=== PATIENT | female | born 1950 | race Caucasian/White ===

== ENCOUNTER 2016-07-05 14:06 | Inpatient (IN) | payer MEDICARE ==
[~2016-07-05] VITALS: Ht 160 cm; Wt 84.0 kg
[2016-07-05 17:14] LABS: ALBUMIN 4.3 g/dL (3.4-4.8); BASOPHIL 0.3 % (0-2); BILIRUBIN - TOTAL 0.4 mg/dL (0.1-1.0); CREATININE 1.3 mg/dL (0.5-1.0); EOSINOPHIL 3.3 % (0-7); HCT 42.9 % (37.0-47.0); HGB 14.7 g/dl (12.5-16.0); LYMPHOCYTE 28.8 % (15-48); MCH 28.8 pg (25.0-31.0); MCHC 34.3 g/dL (32.0-36.0); MCV 84.1 fL (78.0-100.0); MONOCYTE 6.8 % (0-12); MPV 9.3 fL (6.0-9.5); NEUTROPHIL 60.8 % (41-80); PLT 176 K/uL (150-400); RDW 14.2 % (11.5-14.0); TOTAL PROTEIN 8.3 g/dL (6.4-8.3); WBC 11.1 K/uL (4.0-10.5)
[2016-07-05 17:31] LABS: BILIRUBIN NEGATIVE (NEGATIVE); BLOOD NEGATIVE Ery/uL (NEGATIVE); CLARITY HAZY (CLEAR); COLOR YELLOW (YELLOW); GLUCOSE (U) 1+ mg/dL (NORMAL); KETONE (U) TRACE mg/dL (NEGATIVE); LEUKOCYTES NEGATIVE Leu/uL (NEGATIVE); NITRITE NEGATIVE (NEGATIVE); PROTEIN 1+ mg/dL (NEGATIVE); SPECIFIC GRAVITY >=1.030 (1.001-1.030)
[2016-07-05 17:32] LABS: BACTERIA 1+; MUCOUS TRACE
[2016-07-05 17:46] LABS: INR 1.04 (0.9-1.2); PROTHROMBIN TIME 13.2 SECONDS (11.7-14.0); PTT 27.7 SECONDS (23.2-31.4)
[2016-07-07 05:20] LABS: HCT 35.5 % (37.0-47.0); HGB 12.3 g/dl (12.5-16.0); MCH 29.5 pg (25.0-31.0); MCHC 34.6 g/dL (32.0-36.0); MCV 85.1 fL (78.0-100.0); MPV 8.7 fL (6.0-9.5); RBC 4.17 M/uL (4.20-5.40); RDW 13.7 % (11.5-14.0); WBC 9.5 K/uL (4.0-10.5)
[2016-07-07 05:43] LABS: CREATININE 1.3 mg/dL (0.5-1.0); POTASSIUM 4.5 mmol/L (3.5-5.1)
[2016-07-08 05:55] LABS: HCT 34.8 % (37.0-47.0); HGB 11.4 g/dl (12.5-16.0); MCH 28.7 pg (25.0-31.0); MCHC 32.8 g/dL (32.0-36.0); MCV 87.7 fL (78.0-100.0); MPV 9.2 fL (6.0-9.5); RBC 3.97 M/uL (4.20-5.40); WBC 9.4 K/uL (4.0-10.5)
== END 2016-07-08 14:56 | DRG 493 ==
LOC: FER 14:06 → FMS 15:54
PROVIDERS: Emergency Medicine; Legal Medicine; ADMIT Internal Medicine
PROC: 0MS Bursae and Ligaments, Reposition (ICD-10-PCS; 2016-07-06)
PROC: 0QSK04Z Reposition Left Fibula with Internal Fixation Device, Open Approach (ICD-10-PCS; principal; 2016-07-06 10:00)
DX: S82.392A Other fracture of lower end of left tibia, initial encounter for closed fracture (principal); D62 Acute posthemorrhagic anemia; E11.22 Type 2 diabetes mellitus with diabetic chronic kidney disease; S93.422A Sprain of deltoid ligament of left ankle, initial encounter; S82.832A Other fracture of upper and lower end of left fibula, initial encounter for closed fracture; W01.0XXA Fall on same level from slipping, tripping and stumbling without subsequent striking against object, initial encounter; Y93.89 Activity, other specified; Y92.009 Unspecified place in unspecified non-institutional (private) residence as the place of occurrence of the external cause; Z79.4 Long term (current) use of insulin; K21.9 Gastro-esophageal reflux disease without esophagitis; E03.9 Hypothyroidism, unspecified; E78.5 Hyperlipidemia, unspecified; F32.9 Major depressive disorder, single episode, unspecified; I12.9 Hypertensive chronic kidney disease with stage 1 through stage 4 chronic kidney disease, or unspecified chronic kidney disease; N18.9 Chronic kidney disease, unspecified
CPT/HCPCS: 36415; 71010; 73590; 73600; 73610; 80048; 80053; 81001; 82962; 84484; 85025; 85610; 85730; 93005; 94010; 94762; 97110; 97116; 97162; 97167; 97530; 97530-GP; 97535; C1713; C9113; J0697; J1100; J1170; J1885; J2270; J2405; J2704; J2795; J3010

== ENCOUNTER 2016-07-08 15:03 | Inpatient (IN) | payer MEDICARE ==
--- NOTE | 2016-07-14 15:40 | NUR ---
PT. REQUESTED TO BE EVALUATED BY [facility] FOR EXTENDED STAY. TO CONTINUE HER THERAPY. PT. STATES THAT SHE DOES NOT HAVE ANY WHERE TO LIVE SHE CANNOT RETURN TO THE HOME UNTIL SHE IS ABLE TO CARE FOR HERSELF. [employer] SHE IS TO EVALUATE PT. ON 07/15/16.
[2016-07-17] MEDS ORDERED: LEVEMIR VI100 UNITS/ SQ (11:37)
[2016-07-17] MEDS ORDERED: HUMULIN R100 UNIT/1 SQ (11:37)
--- NOTE | 2016-07-17 11:37 | NUR ---
PT. TO D/C TO THE [facility] THIS DATE PER HER REQUEST. PT. IS NEEDING TO STAY FOR AN EXTENDED TIME. D/C NOTICE AND QUESTIONNAIRE GIVEN.
[2016-07-17] MEDS ORDERED: PERCOCET 5/3251 TAB PO (11:38)
[2016-07-17] MEDS ORDERED: TOPROL XL 50 MG50 MG PO (11:39)
[2016-07-17] MEDS ORDERED: SYNTHROID175 MCG PO (11:39)
[2016-07-17] MEDS ORDERED: EFFEXOR XR150 MG PO (11:39)
[2016-07-17] MEDS ORDERED: LOVENOX40 MG/0.1 SQ (11:40)
[2016-07-17] MEDS ORDERED: MICRONASE5 MG PO (11:40)
[2016-07-17] MEDS ORDERED: PROTONIX 40MG T40 MG PO (11:40)
--- NOTE | 2016-07-17 11:40 | NUR ---
66 YEAR OLD FEMALE DC TO [facility] S/P LEFT TIB/FIB FX, NON-WEIGHT BEARING X 8 WEEKS, REPORT RADHA MUNIZ
[2016-07-17] MEDS ORDERED: MAALOX ADVANCE355 ML PO (11:41)
[2016-07-17] MEDS ORDERED: TYLENOL650 MG PR (11:42)
[2016-07-17] MEDS ORDERED: ACETAMINOPHEN325 MG PO (11:42)
[2016-07-17] MEDS ORDERED: COLACE100 M1 PO (11:43)
[2016-07-17] MEDS ORDERED: LAXATIVE SUPPOS10 MG PR (11:43)
[2016-07-17] MEDS ORDERED: SENOKOT8.6 MG PO (11:43)
[2016-07-17] MEDS ORDERED: MILK OF MA400 MG/5 M PO (11:43)
== END 2016-07-17 11:41 | DRG 563 ==
LOC: FSNU 15:03
PROVIDERS: ADMIT Internal Medicine
DX: S82.392A Other fracture of lower end of left tibia, initial encounter for closed fracture (principal); E11.22 Type 2 diabetes mellitus with diabetic chronic kidney disease; D62 Acute posthemorrhagic anemia; S93.422A Sprain of deltoid ligament of left ankle, initial encounter; S82.832A Other fracture of upper and lower end of left fibula, initial encounter for closed fracture; W01.0XXA Fall on same level from slipping, tripping and stumbling without subsequent striking against object, initial encounter; Y93.89 Activity, other specified; Y92.009 Unspecified place in unspecified non-institutional (private) residence as the place of occurrence of the external cause; Z79.4 Long term (current) use of insulin; K21.9 Gastro-esophageal reflux disease without esophagitis; E03.9 Hypothyroidism, unspecified; E78.5 Hyperlipidemia, unspecified; F32.9 Major depressive disorder, single episode, unspecified; I12.9 Hypertensive chronic kidney disease with stage 1 through stage 4 chronic kidney disease, or unspecified chronic kidney disease; N18.9 Chronic kidney disease, unspecified
CPT/HCPCS: 82962; 97110; 97116; 97161; 97166; 97530-GP; 97535; J1815